=== PATIENT | female | born 1985 | race Caucasian/White ===

== ENCOUNTER 2016-11-02 16:00 | Emergency (ER) | payer BC ==
[~2016-11-02] VITALS: Ht 162.6 cm; Wt 80.5 kg
[~2016-11-02 16:00] MED LIST: ACET500C5 PO; NITR-58 PO
[2016-11-02 16:06] VITALS: Ht 162.6 cm; Wt 80.5 kg
[2016-11-02] MEDS ORDERED: ONDANSETRON (ODT) 4 MG TAB ODT STA (17:46)
[2016-11-02] MEDS ORDERED: ACETAMINOPHEN 325 MG TAB PO STA (17:46)
[2016-11-02 18:15] LABS: ADD UMIC YES; URINE BILIRUBIN (Dip) NEGATIVE (NEGATIVE); URINE BLOOD (Dip) TRACE (NEGATIVE); URINE COLOR LT. YELLOW (YELLOW); URINE GLUCOSE (Dip) NEGATIVE (NEGATIVE); URINE KETONES (Dip) TRACE (NEGATIVE); URINE LEUKOCYTE ESTERASE (Dip) NEGATIVE (NEGATIVE); URINE NITRITE (Dip) NEGATIVE (NEGATIVE); URINE TOTAL PROTEIN (Dip) NEGATIVE (NEGATIVE); URINE UROBILINOGEN (Dip) 0.2 E.U./dL (0.1-1.0)
[2016-11-02 18:25] LABS: BACTERIA,URINE MODERATE; MUCUS,URINE MANY; SQUAMOUS EPITHELIAL CELL,UR MODERATE; URINE RBCS 0-2 /HPF (0)
--- NOTE | 2016-11-02 18:49 | RADRPT ---
PROCEDURE: US OB. CLINICAL INDICATION: Ass positive test. Vaginal bleeding. TECHNIQUE: Multiple sonographic images of the uterus were obtained. The images were revi ewed on a PACS workstation. COMPARISON: No prior studies are available for comparison. FINDINGS: There is a single live intrauterine gestation. heart rate is 132 beats per minute. Measurements were made in order to determine age. The results are as follows: BPD = 2.77 cm. HC = 11.37 cm. AC = 7.96 cm. FL = 1.56 cm. Estimated weight is 102 +/- 15 grams. LMP growth percentile is 15 %. Menstrual age by ultrasound dates is 14 weeks 6 days. The estimated date of delivery is 04/27/2017. Maximum vertical pocket of amniotic fluid is 3.5 cm Position is variable and placenta is anterior. There is no evidence for an abruption or placenta pre via. IMPRESSION: 1. Single live intrauterine gestation of 14 weeks 6 days menstrual age by ultrasound dates. 2. The estimated date of delivery is 04/27/2017. RPTAT: QQ .Himanshu Santos MD, MD Date Time Electronically viewed and signed by .Himanshu Santos MD, on 11/02/2016 18:49 .R/
[2016-11-02 19:06] LABS: ADD SCAN DIFF NO
[2016-11-02 19:13] LABS: BASOPHILS % 0.3 % (0.0-2.0); EOSINOPHILS # 0.1 10^3/ul (0.0-0.5); EOSINOPHILS % 0.8 % (0.0-7.0); HEMATOCRIT 36.3 % (37.0-47.0); HEMOGLOBIN 11.8 g/dl (12.0-16.0); LYMPHOCYTES # 2.4 10^3/ul (0.8-2.9); LYMPHOCYTES % 25.1 % (15.0-51.0); MEAN CORPUSCULAR HEMOGLOBIN 28.6 pg (29.0-33.0); MEAN CORPUSCULAR HGB CONC 32.5 g/dl (32.0-37.0); MEAN CORPUSCULAR VOLUME 87.9 fl (82.0-101.0); MEAN PLATELET VOLUME 10.7 fl (7.4-10.4); MONOCYTE # 0.6 10^3/ul (0.3-0.9); MONOCYTES % 6.6 % (0.0-11.0); NEUTROPHIL # 6.5 10^3/ul (1.6-7.5); NEUTROPHILS % 66.8 % (39.0-77.0); PLATELET COUNT 253 10^3/UL (140-415); RED BLOOD COUNT 4.13 10^6/ul (4.20-5.40); RED CELL DISTRIBUTION WIDTH 12.8 % (11.5-14.5); WHITE BLOOD COUNT 9.7 10^3/ul (4.8-10.8)
[2016-11-02] MEDS ORDERED: ONDA4TAB8 PO (21:23)
[2016-11-02] MEDS ORDERED: ACET325T33 PO (21:23)
[2016-11-02 21:45] VITALS: BP 132/77; PULSE 65; RESP 16
--- NOTE | 2016-11-02 23:22 | ERD ---
ER Documentation Chief Complaint Date/Time DATE: 11/02/16 TIME: 23:10 Chief Complaint MID ABDOMINAL PAIN,12 WEEKS ,NAUSEA HPI This is a 30-year-old female on her 12th week of gestation complaining of abdominal pain, nausea and vaginal discharge since yesterday. Patient states that when she wiped her perineum yesterday, she noticed a bright red bloody discharge on the toilet paper. Today it was normal amount of brownish discharge. Abdominal pain is localized on the periumbilical area. She denies recent history of fever, dysuria, shortness of breath, chest pain, dizziness, peripheral edema or diarrhea. Patient is . Patient takes vitamins. Denies smoking or alcohol use ROS All systems reviewed and are negative except as per history of present illness. Medications Home Meds Active Scripts Ondansetron Hcl* (Zofran*) 4 Mg Tablet, 4 MG PO Q8H Y for NAUSEA AND/OR VOMITING , #30 TAB Prov:MECHELLE WAYNE 11/02/16 Acetaminophen* (Tylenol*) 325 Mg Tablet, 2 TAB PO Q6 Y for PAIN AND OR ELEVATED TEMP, #20 TAB Prov:MECHELLE WAYNE 11/02/16 Acetaminophen* (Tylophen*) 500 Mg Capsule, 1 CAP PO Q6H Y for PAIN AND OR ELEVATED TEMP, #20 CAP Prov:FRENCH GUNDERSON PA-C 06/05/16 Nitrofurantoin Monohyd Macrocr* (Macrobid*) 100 Mg Capsr, 100 MG PO BID for 5 Days, CAP Prov:FRENCH GUNDERSON PA-C 06/05/16 Reported Medications [None] No Conflict Check 12/10/09 Allergies Allergies: Coded Allergies: No Known Drug Allergies (Verified Allergy, Mild, 11/02/16) PMhx/Soc History of Surgery: Yes (C SECTION X 2) Anesthesia Reaction: No Hx Neurological Disorder: No Hx Respiratory Disorders: No Hx Cardiac Disorders: No Hx Psychiatric Problems: No Hx Miscellaneous Medical Probl: No Hx Alcohol Use: No Hx Substance Use: No Hx Tobacco Use: No Smoking Status: Never smoker Physical Exam Vitals Vital Signs Date Time Temp Pulse Resp B/P Pulse Ox O2 Delivery O2 Flow Rate FiO2 11/02/16 21:45 65 16 132/77 100 Room Air 3/23/17 16:06 98.0 86 18 123/93 98 Physical Exam Physical Exam CONST: Well-developed, well-nourished, in no acute distress. Nontoxic in appearance. HEENT: Atraumatic. Normal conjunctiva. EOM intact. TM intact. External ear is normal. Clear oropharnyx without erythema. No uvular deviation. Moist mucous membranes. Supple neck. No meningismus. No submandibular induration. RESP: Clear to auscultation bilaterally. No wheezing. CARDIO: Regular rate and rhythm, no murmurs. ABD: Periumbilical tenderness. Abdomen soft, non distended. Normal bowel sounds. No McBurney's point tenderness. No guarding or rigidity. No peritoneal signs. SKIN: No petechiae or rashes. BACK: No midline or flank tenderness. EXT: No cyanosis or edema. Distal pulses equal and bilateral. NEURO: Awake and alert, appropriate for age. Result Diagram: 11/02/16 1815 Results 24 hrs Laboratory Tests Test 11/02/16 18:06 11/02/16 18:15 Urine Color LT. YELLOW Urine Clarity SLIGHTLY CLOUDY Urine pH 6.0 Urine Specific [place] >=1.030 Urine Ketones TRACE Urine Nitrite NEGATIVE Urine Bilirubin NEGATIVE Urine Urobilinogen 0.2 E.U./dL Urine Leukocyte Esterase NEGATIVE Urine Microscopic RBC 0-2/HPF Urine Microscopic WBC NONE SEEN/HPF Urine Squamous Epithelial Cells MODERATE Urine Bacteria MODERATE Urine Mucus MANY Urine Hemoglobin TRACE Urine Glucose NEGATIVE% Urine Total Protein NEGATIVE White Blood Count 9.710^3/ul Red Blood Count 4.1310^6/ul Hemoglobin 11.8g/dl Hematocrit 36.3% Mean Corpuscular Volume 87.9fl Mean Corpuscular Hemoglobin 28.6pg Mean Corpuscular Hemoglobin Concent 32.5g/dl Red Cell Distribution Width 12.8% Platelet Count 33106^3/UL Mean Platelet Volume 10.7fl Neutrophils % 66.8% Lymphocytes % 25.1% Monocytes % 6.6% Eosinophils % 0.8% Basophils % 0.3% Nucleated Red Blood Cells % 0.0/100WBC Neutrophils # 6.510^3/ul Lymphocytes # 2.410^3/ul Monocytes # 0.610^3/ul Eosinophils # 0.110^3/ul Basophils # 0.010^3/ul Nucleated Red Blood Cells # 0.010^3/ul Beta HCG, Quantitative 23022.0mIU/ml Current Medications Medications (Trade) Dose Ordered Sig/Briana Route PRN Reason Start Time Stop Time Status Last Admin Dose Admin Acetaminophen (Tylenol Tab) 650 mg ONCE STAT PO 11/02/16 17:46 11/02/16 17:53 DC 11/02/16 18:04 Ondansetron HCl (Zofran Odt) 4 mg ONCE STAT ODT 11/02/16 17:46 11/02/16 17:53 DC 11/02/16 18:04 PROCEDURE: US OB. CLINICAL INDICATION: Ass positive test. Vaginal bleeding. TECHNIQUE: Multiple sonographic images of the uterus were obtained. The images were reviewed on a PACS workstation. COMPARISON: No prior studies are available for comparison. FINDINGS: There is a single live intrauterine gestation. heart rate is 132 beats per minute. Measurements were made in order to determine age. The results are as follows: BPD = 2.77 cm. HC = 11.37 cm. AC = 7.96 cm. FL = 1.56 cm. Estimated weight is 102 +/- 15 grams. LMP growth percentile is 15 %. Menstrual age by ultrasound dates is 14 weeks 6 days. The estimated date of delivery is 04/27/2017. Maximum vertical pocket of amniotic fluid is 3.5 cm Position is variable and placenta is anterior. There is no evidence for an abruption or placenta previa. IMPRESSION: 1. Single live intrauterine gestation of 14 weeks 6 days menstrual age by ultrasound dates. 2. The estimated date of delivery is 04/27/2017. RPTAT: QQ .Himanshu Santos MD, MD Date Time Electronically viewed and signed by .Himanshu Santos MD, MD on 11/02/2016 18:49 Procedures/MDM EMERGENCY DEPARTMENT COURSE/MEDICAL DECISION MAKING This is a 30-year-old Fe who comes to the emergency room secondary to complaints of abdominal pain, nausea and vaginal discharge since yesterday. The patient was given Tylenol and Zofran in the department. On re-evaluation, the patient's symptoms improved. Lab results reviewed and showed no [place] [address] Ultrasound OB was done and was interpreted by a radiologist. Results shows single live intrauterine gestation of 14 weeks 6 days menstrual age by ultrasound dates. There is no evidence of abruptio placenta or placenta previa My primary diagnosis is abdominal pain. Secondary diagnosis is vaginal bleeding and nausea Differential diagnoses considered but not limited to acute appendicitis, diverticulitis, pancreatitis, cholecystitis, gastritis, pyelonephritis, UTI, constipation, inflammatory bowel disease, ectopic , ovarian torsion.. Pt is hemodynamically stable upon reassessment. The patient was discharged for outpatient management with a prescription for Tylenol and Zofran. [employer] referral list was given. The patient was advised to followup with a ehs engineer and her PMD in 1-2 days. Patient was also instructed to return to the Emergency Department if there are any new or worsening symptoms. The patient understood and agreed with the diagnosis, treatment and plan. Patient is stable for discharge at this time. Departure Diagnosis: Primary Impression: Abdominal pain Abdominal location: periumbilical Qualified Code: R10.33 - Periumbilical abdominal pain Additional Impressions: Vaginal bleeding before 22 weeks gestation Nausea Condition: Stable Patient Instructions: Vaginal Bleed in , Nausea, Abdominal Pain, Early Referrals: [facility] YOU HAVE RECEIVED A MEDICAL SCREENING EXAM AND THE RESULTS INDICATE THAT YOU DO NOT HAVE A CONDITION THAT REQUIRES URGENT TREATMENT IN THE EMERGENCY DEPARTMENT. FURTHER EVALUATION AND TREATMENT OF YOUR CONDITION CAN WAIT UNTIL YOU ARE SEEN IN YOUR DOCTORS OFFICE WITHIN THE NEXT 1-2 DAYS. IT IS YOUR RESPONSIBILITY TO MAKE AN APPOINTMENT FOR FOLOW-UP CARE. IF YOU HAVE A PRIMARY DOCTOR --you should call your primary doctor and schedule an appointment IF YOU DO NOT HAVE A PRIMARY DOCTOR YOU CAN CALL OUR PHYSICIAN REFERRAL HOTLINE AT IF YOU CAN NOT AFFORD TO SEE A PHYSICIAN YOU CAN CHOSE FROM THE FOLLOWING [facility] [address] [facility] [address] [facility] [address] [facility] [address] [facility] [address] [facility]. [facility]. [address] [facility]. [facility] YOU HAVE RECEIVED A MEDICAL SCREENING EXAM AND THE RESULTS INDICATE THAT YOU DO NOT HAVE A CONDITION THAT REQUIRES URGENT TREATMENT IN THE EMERGENCY DEPARTMENT. FURTHER EVALUATION AND TREATMENT OF YOUR CONDITION CAN WAIT UNTIL YOU ARE SEEN IN YOUR DOCTORS OFFICE WITHIN THE NEXT 1-2 DAYS. IT IS YOUR RESPONSIBILITY TO MAKE AN APPOINTMENT FOR FOLOW-UP CARE. IF YOU HAVE A PRIMARY DOCTOR --you should call your primary doctor and schedule and appointment IF YOU DO NOT HAVE A PRIMARY DOCTOR YOU CAN CALL OUR PHYSICIAN REFERRAL HOTLINE AT . IF YOU CAN NOT AFFORD TO SEE A PHYSICIAN YOU CAN CHOSE FROM THE FOLLOWING [facility] INSTITUTIONS: [facility] [address] [place] [address] [facility] [address] [place] [address] [facility] [address] [place] [address] [employer] [place] [id number] [facility] [address] [place] [address] OFFICE FAX , [facility] [address] [place], [place] [id number] [facility] [facility] [address] [place] [address] [address]IE BOW[address] [facility], [address], [facility] [address] [address] [address] [place] [address] [facility] [place] [address] [place] [address] [address] [facility] [address] [address], [facility] [address] [address], [place] [address] [address], [address] [address] [place] [address] Additional Instructions: Seguimiento con latif mdico de atencin primaria en 1-2 san. Volver al Departamento de la emergencia inmediatamente si tiene alguno nuevo o empeoramiento de los sntomas, incontrolada fiebre u otros sntomas inexplicables. Seltzer todos los medicamentos kerwin lo indique. MECHELLE WAYNE Nov 02, 2016 23:21
== END 2016-11-02 21:46 | disposition home or self-care (01) ==
LOC: FTE 16:00
DX: O26.892 Other specified pregnancy related conditions, second trimester (principal); O20.9 Hemorrhage in early pregnancy, unspecified; R10.33 Periumbilical pain; R11.0 Nausea; Z3A.14 14 weeks gestation of pregnancy
CPT/HCPCS: 76801; 81001; 84702; 85025; 86900; 86901; 87086; Z7610; 36415; 81003

== ENCOUNTER 2017-01-25 21:22 | Emergency (ER) | payer BC, OTHER ==
[~2017-01-25] VITALS: Ht 162.6 cm; Wt 81.5 kg
[~2017-01-25 21:22] MED LIST changes: +ACET325T33 PO; +ONDA4TAB8 PO
[2017-01-25 21:28] VITALS: Ht 162.6 cm; Wt 81.5 kg
--- NOTE | 2017-01-25 23:10 | ERA ---
ER Documentation Chief Complaint Date/Time DATE: 01/25/17 TIME: 23:09 Chief Complaint dizziness,nausea HPI The patient is a 31-year-old female, presenting to the ER because he felt dizzy and nausea but no vomiting. She had these symptoms right after she finished Bible study. She complained of generalized facial and whole body numbness intermittently since 9 PM. She denies headache, neck pain, chest pain, dyspnea , abdominal pain, vomiting, dysuria, diarrhea, constipation. He does not smoke nor drink, 3 para 2, denies smoking or drinking not using any illicit drug Past medical history: Anxiety Past surgical history: ROS All systems reviewed and are negative except as per history of present illness. Medications Home Meds Reported Medications Multivit/Min/Fol Ac/Iron/Pren* ( S*) 1 Tab Tab, 1 TAB PO DAILY, TAB 01/25/17 Discontinued Reported Medications [None] No Conflict Check 12/10/09 Discontinued Scripts Ondansetron Hcl* (Zofran*) 4 Mg Tablet, 4 MG PO Q8H Y for NAUSEA AND/OR VOMITING , #30 TAB Prov:MECHELLE WAYNE 11/02/16 Acetaminophen* (Tylenol*) 325 Mg Tablet, 2 TAB PO Q6 Y for PAIN AND OR ELEVATED TEMP, #20 TAB Prov:MECHELLE WAYNE 11/02/16 Acetaminophen* (Tylophen*) 500 Mg Capsule, 1 CAP PO Q6H Y for PAIN AND OR ELEVATED TEMP, #20 CAP Prov:FRENCH GUNDERSON PA-C 06/05/16 Nitrofurantoin Monohyd Macrocr* (Macrobid*) 100 Mg Capsr, 100 MG PO BID for 5 Days, CAP Prov:FRENCH GUNDERSON PA-C 06/05/16 Allergies Allergies: Coded Allergies: No Known Drug Allergies (Unverified Allergy, Unknown, 01/25/17) PMhx/Soc History of Surgery: Yes (C SECTION X 2) Anesthesia Reaction: No Hx Neurological Disorder: No Hx Respiratory Disorders: No Hx Cardiac Disorders: No Hx Psychiatric Problems: No Hx Miscellaneous Medical Probl: No Hx Alcohol Use: No Hx Substance Use: No Hx Tobacco Use: No Physical Exam Vitals Vital Signs Date Time Temp Pulse Resp B/P Pulse Ox O2 Delivery O2 Flow Rate FiO2 01/26/17 02:22 71 18 115/64 97 Room Air 01/25/17 23:45 98.0 72 18 139/92 98 Room Air 01/25/17 21:28 98.6 76 18 137/85 99 Physical Exam Const: No acute distress. Very anxious Head: Atraumatic. Eyes: Normal Conjunctiva. ENT: Normal External Ears, Nose and Mouth. Neck: Full range of motion. No meningismus. Resp: Clear to auscultation bilaterally. Cardio: Regular rate and rhythm. Abd: Soft, non distended, normal bowel sounds, non tender. Skin: No petechiae or rashes. Back: No midline or flank tenderness. Ext: No cyanosis, or edema. Neur: Awake and alert. No focal deficit Psych: Normal Mood and Affect. Result Diagram: 01/25/17 2337 01/25/17 2337 Results 24 hrs Laboratory Tests Test 01/25/17 23:14 01/25/17 23:37 01/26/17 00:51 Bedside Glucose 95mg/dL White Blood Count 10.010^3/ul Red Blood Count 3.6110^6/ul Hemoglobin 10.9g/dl Hematocrit 32.3% Mean Corpuscular Volume 89.5fl Mean Corpuscular Hemoglobin 30.2pg Mean Corpuscular Hemoglobin Concent 33.7g/dl Red Cell Distribution Width 12.6% Platelet Count 01799^3/UL Mean Platelet Volume 10.8fl Neutrophils % 66.6% Lymphocytes % 25.0% Monocytes % 6.9% Eosinophils % 1.0% Basophils % 0.2% Nucleated Red Blood Cells % 0.0/100WBC Neutrophils # 6.710^3/ul Lymphocytes # 2.510^3/ul Monocytes # 0.710^3/ul Eosinophils # 0.110^3/ul Basophils # 0.010^3/ul Nucleated Red Blood Cells # 0.010^3/ul Prothrombin Time 12.0Sec Prothrombin Time Ratio 0.9 INR International Normalized Ratio 0.89 Activated Partial Thromboplast Time 28.6Sec Sodium Level 143mmol/L Potassium Level 3.5mmol/L Chloride Level 109mmol/L Carbon Dioxide Level 23mmol/L Anion Gap 15 Blood Urea Nitrogen 9mg/dl Creatinine 0.46mg/dl Glucose Level 82mg/dl Calcium Level 9.5mg/dl Total Bilirubin 0.1mg/dl Direct Bilirubin 0.00mg/dl Indirect Bilirubin 0.1mg/dl Aspartate Amino Transf (AST/SGOT) 23IU/L Alanine Aminotransferase (ALT/SGPT) 18IU/L Alkaline Phosphatase 78IU/L Total Protein 7.9g/dl Albumin 4.3g/dl Globulin 3.60g/dl Albumin/Globulin Ratio 1.19 Lipase 42U/L Thyroid Stimulating Hormone (TSH) 1.440MIU/L Ethyl Alcohol Level < 10.0mg/dl Bedside Urine pH (LAB) 6.0 Bedside Urine Protein (LAB) 1+ Bedside Urine Glucose (UA) Negative Bedside Urine Ketones (LAB) 2+ Bedside Urine Blood Trace-intact Bedside Urine Nitrite (LAB) Negative Bedside Urine Leukocyte Esterase (L Negative Procedures/MDM MEDICAL MAKING DECISION: The patient is a 31-year-old female, presenting with acute anxiety. Remains well in the emergency department and her symptoms resolved by themselves The differential diagnoses considered include but are not limited to panic attack, anxiety attack, depression, stress, psychiatric illness EKG: Read by emergency physician Rate/Rhythm: Normal Sinus Rhythm 70 beats/min QRS, ST, T-waves: No ST elevation, no T inversion Impression: Normal EKG Departure Diagnosis: Primary Impression: Anxiety attack Additional Impression: Anemia Condition: Good Comments I discussed the findings with the patient. I advised the patient to follow-up with the primary physician in about 1-2 days, sooner if needed and return if any concern. The patient's blood pressure was elevated (>120/80) but appears stable without evidence of hypertension emergency or urgency. The patient was counseled about the risks of hypertension and urged to pursue outpatient monitoring and therapy within a week with their primary care physician. IDA PAVON MD Jan 25, 2017 23:10
[2017-01-25] MEDS ORDERED: PRENAT PO (23:30)
[2017-01-25 23:45] VITALS: TEMP 98
[2017-01-25 23:53] LABS: ADD SCAN DIFF NO
[2017-01-25 23:59] LABS: BASOPHILS % 0.2 % (0.0-2.0); EOSINOPHILS # 0.1 10^3/ul (0.0-0.5); HEMATOCRIT 32.3 % (37.0-47.0); HEMOGLOBIN 10.9 g/dl (12.0-16.0); LYMPHOCYTES # 2.5 10^3/ul (0.8-2.9); MEAN CORPUSCULAR HEMOGLOBIN 30.2 pg (29.0-33.0); MEAN CORPUSCULAR HGB CONC 33.7 g/dl (32.0-37.0); MEAN CORPUSCULAR VOLUME 89.5 fl (82.0-101.0); MEAN PLATELET VOLUME 10.8 fl (7.4-10.4); MONOCYTE # 0.7 10^3/ul (0.3-0.9); MONOCYTES % 6.9 % (0.0-11.0); NEUTROPHIL # 6.7 10^3/ul (1.6-7.5); NEUTROPHILS % 66.6 % (39.0-77.0); PLATELET COUNT 262 10^3/UL (140-415); RED BLOOD COUNT 3.61 10^6/ul (4.20-5.40); RED CELL DISTRIBUTION WIDTH 12.6 % (11.5-14.5)
[2017-01-26 00:27] LABS: INR 0.89; PT RATIO 0.9
[2017-01-26 00:28] LABS: PARTIAL THROMBOPLASTIN TIME 28.6 Sec (25.0-35.0)
[2017-01-26 00:29] LABS: ALANINE AMINOTRANSFERASE 18 IU/L (13-69); ALBUMIN 4.3 g/dl (3.3-4.9); ALBUMIN/GLOBULIN RATIO 1.19; ALKALINE PHOSPHATASE 78 IU/L (42-121); ANION GAP 15 (8-16); ASPARTATE AMINO TRANSFERASE 23 IU/L (15-46); BILIRUBIN,INDIRECT 0.1 mg/dl (0-1.1); BILIRUBIN,TOTAL 0.1 mg/dl (0.2-1.3); BLOOD UREA NITROGEN 9 mg/dl (7-20); CALCIUM 9.5 mg/dl (8.4-10.2); CARBON DIOXIDE 23 mmol/L (21-31); CHLORIDE 109 mmol/L (97-110); CREATININE 0.46 mg/dl (0.44-1.00); GLUCOSE 82 mg/dl (70-220); POTASSIUM 3.5 mmol/L (3.5-5.1); SODIUM 143 mmol/L (135-144)
[2017-01-26 00:49] LABS: URINE BLOOD (Dip) POC Trace-intact (NEGATIVE)
[2017-01-26 01:25] LABS: ETHANOL < 10.0 mg/dl; TOTAL PROTEIN 7.9 g/dl (6.1-8.1)
[2017-01-26 02:22] VITALS: BP 115/64; PULSE 71; RESP 18
== END 2017-01-26 02:25 | disposition home or self-care (01) ==
LOC: FTE 21:22 → E/R 01-26 02:25
DX: F41.9 Anxiety disorder, unspecified (principal); D64.9 Anemia, unspecified; R07.9 Chest pain, unspecified
CPT/HCPCS: 36415; 80053; 80306; 81003; 82962; 83690; 84443; 85025; 85610; 85730; 93005; Z7502

== ENCOUNTER 2017-03-16 08:50 | Emergency (ER) | payer OTHER ==
[~2017-03-16] VITALS: Ht 162.6 cm; Wt 82.0 kg
[~2017-03-16 08:50] MED LIST changes: -ACET325T33 PO; -ACET500C5 PO; -NITR-58 PO; -ONDA4TAB8 PO; +PRENAT PO
[2017-03-16 08:55] VITALS: Ht 162.6 cm; Wt 82.0 kg
[2017-03-16] MEDS ORDERED: ACETAMINOPHEN 500 MG TAB PO STA (09:28)
[2017-03-16] MEDS ORDERED: LIDOCAINE 1% (MDV) 20 ML INJ SC ONE (09:30)
[2017-03-16] MEDS ORDERED: CLIN-73 PO (09:55)
[2017-03-16] MEDS ORDERED: ACET500C5 PO (09:56)
--- NOTE | 2017-03-16 10:02 | ERD ---
ER Documentation Chief Complaint Date/Time DATE: 03/16/17 TIME: 09:56 Chief Complaint LEFT UPPER THIGH ABCESS WITH PAIN HPI Patient is a 31-year-old female, , approximately 33 weeks , who presents to the emergency department for concerns of an abscess in her left groin region. She states that initially she had a small red pimple in the affected area. Patient states that the redness and swelling has been increasing. Patient does report shaving the affected area. Patient denies any active discharge or bleeding. Patient denies any fevers or chills. Patient denies any nausea, vomiting, abdominal pain, pelvic cramping, vaginal bleeding, excessive vaginal discharge, fluid loss or active contractions. 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 Patient reports normal . No sick contacts. No recent travel ROS All systems reviewed and are negative except as per history of present illness. Medications Home Meds Active Scripts Acetaminophen* (Tylophen*) 500 Mg Capsule, 1 CAP PO Q6H Y for PAIN AND OR ELEVATED TEMP, #20 CAP Prov:ALLI MILLER PA-C 03/16/17 Clindamycin Hcl* (Clindamycin Hcl*) 300 Mg Capsule, 300 MG PO TID for 10 Days, CAP Prov:ALLI MILLER PA-C 03/16/17 Reported Medications Multivit/Min/Fol Ac/Iron/Pren* ( S*) 1 Tab Tab, 1 TAB PO DAILY, TAB 01/25/17 Allergies Allergies: Coded Allergies: No Known Drug Allergies (Unverified Allergy, Unknown, 01/25/17) PMhx/Soc History of Surgery: Yes (C SECTION X 2) Anesthesia Reaction: No Hx Neurological Disorder: No Hx Respiratory Disorders: No Hx Cardiac Disorders: No Hx Psychiatric Problems: No Hx Miscellaneous Medical Probl: No Hx Alcohol Use: No Hx Substance Use: No Hx Tobacco Use: No Smoking Status: Never smoker Physical Exam Vitals Vital Signs Date Time Temp Pulse Resp B/P Pulse Ox O2 Delivery O2 Flow Rate FiO2 03/16/17 08:55 98.6 75 18 124/71 99 Physical Exam GENERAL: Well-developed, well-nourished female. Appears in no acute distress. HEAD: Normocephalic, atraumatic. EYES: Pupils are equally reactive bilaterally. EOMs grossly intact. No conjunctival erythema. ENT: Moist mucous membranes. No uvula deviation. No kissing tonsils. NECK: Supple. No meningismus. Normal range of motion of the neck. LUNG: Clear to auscultation bilaterally. No rhonchi, wheezing, rales or coarse breath sounds. HEART: Regular rate and rhythm. No murmurs, rubs or gallops. ABDOMEN: Gravid abdomen. No rebound tenderness, no guarding. (-) McBurney's point tenderness. No CVA tenderness. EXTREMITIES: Equal pulses bilaterally. No peripheral clubbing, cyanosis or edema. No unilateral leg swelling. NEUROLOGIC: Alert and oriented. Moving all four extremities without any difficulty. Normal speech. Steady gait. SKIN: Normal color. Warm and dry. 2 cm circular abscess noted in the left groin. Ingrown hair noted. Erythematous and swollen. Mildly warm to touch. + Induration and fluctuance noted. Results 24 hrs Current Medications Medications (Trade) Dose Ordered Sig/Briana Route PRN Reason Start Time Stop Time Status Last Admin Dose Admin Acetaminophen (Tylenol Tab) 1,000 mg ONCE STAT PO 03/16/17 09:28 03/16/17 09:30 DC 03/16/17 09:40 Lidocaine (Xylocaine 1% (Mdv) 20 ml) 20 ml ONCE ONCE SC 03/16/17 09:30 03/16/17 09:31 DC Procedures/MDM ED COURSE: The patient was stable throughout ED course. I kept the patient and/or family informed of laboratory and diagnostic imaging results throughout the ED course. PROCEDURES: INCISION AND DRAINAGE: The patient was verbally consented prior to procedure. Patient was explained the risks, benefits and alternatives to this procedure. Location: Left groin Abscess size: 2 cm Anesthesia: local 1% lidocaine, 5 cc Preparation: The area was prepped in a sterile fashion using betadine x3 cleanses. A sterile field was prepared. Technique: A sterile 11 blade scalpel was used to make a 1 cm linear incision into the abscess. Procedure: A midline abscess incision was made using a sterile scalpel in a linear fashion. Purulent material was expressed with direct pressure. Blunt probing was used to break up loculations. Bleeding was minimal. Packing: none The patient tolerated the procedure well with no complications. The wound was dressed in sterile gauze. The patient was neurovascularly intact post- procedure. Post-procedural wound care was discussed with the patient. MEDICATIONS GIVEN: Tylenol Patient tolerated medication well with no adverse reactions. MEDICAL DECISION MAKING: This is a 31-year-old female who presents with an abscess to her left groin region 4 days. Patient is approximately 33 weeks . Patient does report receiving OB care throughout her . Patient denies any pelvic cramping, abdominal pain, nausea, vomiting, vaginal bleeding, excessive vaginal discharge or contractions at this time. Vital signs were reviewed. Patient was afebrile. An incision and drainage was performed. Patient tolerated procedure well. No complications. Patient will be discharged home with a prescription for clindamycin which is safe during . At this time, patient's presentation is most consistent with abscess due to ingrown hair. Low suspicion for deep space infection, cellulitis, infected insect bite, spontaneous rupture of membranes, active labor. She was given labor return precautions. Patient was also given instructions to return to the emergency department for a wound recheck in 2 days. PRESCRIPTIONS: Clindamycin, Tylenol DISCHARGE: At this time, the patient is stable for discharge and outpatient management. Post-procedural wound care was discussed with the patient. The patient has been advised to return to the ER in 2 days for a wound check. I have instructed the patient to promptly return to the ER for any new or worsening symptoms including increasing pain, fever, warmth, redness or swelling. The patient and/ or family expressed understanding of and agreement with this plan. All questions were answered. Home care instructions were provided. Disclaimer: Inadvertent spelling and grammatical errors are likely due to EHR/ dictation software use and do not reflect on the overall quality of patient care. Also, please note that the electronic time recorded on this note does not necessarily reflect the actual time of the patient encounter. Departure Diagnosis: Primary Impression: Abscess Condition: Stable Patient Instructions: Abscess, Incision And Drainage Referrals: COMMUNITY CLINICS YOU HAVE RECEIVED A MEDICAL SCREENING EXAM AND THE RESULTS INDICATE THAT YOU DO NOT HAVE A CONDITION THAT REQUIRES URGENT TREATMENT IN THE EMERGENCY DEPARTMENT. FURTHER EVALUATION AND TREATMENT OF YOUR CONDITION CAN WAIT UNTIL YOU ARE SEEN IN YOUR DOCTORS OFFICE WITHIN THE NEXT 1-2 DAYS. IT IS YOUR RESPONSIBILITY TO MAKE AN APPOINTMENT FOR FOLOW-UP CARE. IF YOU HAVE A PRIMARY DOCTOR --you should call your primary doctor and schedule an appointment IF YOU DO NOT HAVE A PRIMARY DOCTOR YOU CAN CALL OUR PHYSICIAN REFERRAL HOTLINE AT IF YOU CAN NOT AFFORD TO SEE A PHYSICIAN YOU CAN CHOSE FROM THE FOLLOWING FORMERLY [facility], [facility] [address] [facility] [address] [facility]. [facility] [address] [facility] [phone] [address] [facility]. [facility] [phone] [address] [facility]. [facility] [address] [facility]. [facility] YOU HAVE RECEIVED A MEDICAL SCREENING EXAM AND THE RESULTS INDICATE THAT YOU DO NOT HAVE A CONDITION THAT REQUIRES URGENT TREATMENT IN THE EMERGENCY DEPARTMENT. FURTHER EVALUATION AND TREATMENT OF YOUR CONDITION CAN WAIT UNTIL YOU ARE SEEN IN YOUR DOCTORS OFFICE WITHIN THE NEXT 1-2 DAYS. IT IS YOUR RESPONSIBILITY TO MAKE AN APPOINTMENT FOR FOLOW- CARE. IF YOU HAVE A PRIMARY DOCTOR --you should call your primary doctor and schedule and appointment IF YOU DO NOT HAVE A PRIMARY DOCTOR YOU CAN CALL OUR PHYSICIAN REFERRAL HOTLINE AT . IF YOU CAN NOT AFFORD TO SEE A PHYSICIAN YOU CAN CHOSE FROM THE FOLLOWING [facility] INSTITUTIONS: [facility] [address] [place] [address] [place] [place] [address] [place] [address] [facility] [address] [place] [address] [employer]PER[employer] [place] [address] [facility] [address] [place], [place] [phone] OFFICE FAX , JEOVANNY [address] [place], [place] [phone] [address] PURDY, [place] [address] [place], [place] [phone] RAYA, [facility] [address] [facility], [address], [facility] [address] [address] [address] [place], [place] [phone] [facility] [address] [place], [place] [address] [address] [facility] [address] - JOVANY [address] [facility] [phone] MONTES, KYLIE [address] [facility], [facility] [address] [address] [facility] [address] [place], [place] [phone] Additional Instructions: Return in 2 days for wound recheck. Return sooner for any new or worsening symptoms including but not limited to severe pain, redness, swelling, fever or chills. Come to the hospital immediately for any signs or concerns of active labor. ALLI MILLER PA-C Mar 16, 2017 10:02
== END 2017-03-16 11:17 | disposition home or self-care (01) ==
LOC: FTE 08:50
DX: L02.214 Cutaneous abscess of groin (principal)
CPT/HCPCS: 10060; Z7610

== ENCOUNTER 2017-03-23 22:12 | Outpatient (CLI) | payer OTHER ==
[~2017-03-23] VITALS: Ht 162.6 cm; Wt 84.0 kg
[~2017-03-23 22:12] MED LIST changes: +ACET500C5 PO; +CLIN-73 PO
[2017-03-23 22:58] LABS: ADD UMIC YES; UR ASCORBIC ACID NEGATIVE (NEGATIVE); UR BILIRUBIN (Dip) NEGATIVE (NEGATIVE); UR BLOOD (Dip) 1+ mg/dL (NEGATIVE); UR CLARITY CLOUDY (CLEAR); UR COLOR YELLOW (YELLOW); UR GLUCOSE (Dip) NEGATIVE (NEGATIVE); UR KETONES (Dip) NEGATIVE (NEGATIVE); UR LEUKOCYTE ESTERASE (Dip) 3+ Leu/ul (NEGATIVE); UR NITRITE (Dip) NEGATIVE (NEGATIVE); UR RBC 3 /HPF (0-5); UR SPECIFIC GRAVITY (Dip) 1.009 (1.003-1.030); UR SQUAMOUS EPITHELIAL CELL FEW /HPF (FEW); UR TOTAL PROTEIN (Dip) 1+ mg/dl (NEGATIVE); UR UROBILINOGEN (Dip) NEGATIVE (NEGATIVE)
[2017-03-23 23:31] VITALS: BP 123/84; PULSE 83; RESP 18; Ht 162.6 cm; Wt 84.0 kg
--- NOTE | 2017-03-24 00:24 | QN ---
Documentation Comment iup 34 weeks co of vaginal pain vss exam wnl no cva tenderness vitals wnl a/p iup 34 weeks false labor uti-macrobid ANH THOMAS MD Mar 24, 2017 00:23
== END 2017-03-24 00:24 | disposition home or self-care (01) ==
LOC: L-D 22:12 → OBT 22:12
PROVIDERS: ATTEND Obstetrics & Gynecology
DX: O23.43 Unspecified infection of urinary tract in pregnancy, third trimester (principal); O47.03 False labor before 37 completed weeks of gestation, third trimester; Z3A.34 34 weeks gestation of pregnancy
CPT/HCPCS: 81001; Z7500; G0463

== ENCOUNTER 2017-04-20 00:10 | Inpatient (IN) | payer OTHER ==
[~2017-04-20] VITALS: Ht 162.6 cm; Wt 84.8 kg
[~2017-04-20 00:10] MED LIST changes: -ACET500C5 PO; -CLIN-73 PO
[2017-04-20 00:18] VITALS: Ht 162.6 cm; Wt 84.8 kg
[2017-04-20 00:19] VITALS: BP 130/87; PULSE 70; RESP 18
--- NOTE | 2017-04-20 01:06 | RADRPT ---
PROCEDURE: OB ultrasound for biophysical profile CLINICAL INDICATION: 31 years of age, female. Female. Contractions. TECHNIQUE: Multiple sonographic images of the pelvis were obtained. Transabdominal view of the gr avid uterus are available for review. The images were reviewed on a PACS workstation. COMPARISON: None available. FINDINGS: breathing movement = 2/2 tone = 2/2 motion = 2/2 Amniotic fluid = 2/2 JIM = 12.5 cm Single live intrauterine in cephalic presentation. heart rate measures 132 bpm. Anterior placenta, grade 1/2. IMPRESSION: 1. Single living fetus in cephalic presentation. 2. Biophysical profile = 8/8. 3. JIM = 12.5 cm. 4. Anterior placenta grade 1/2. RPTAT: HCTS Physician Aaliyah Date Time Electronically viewed and signed by Physician Aaliyah on 04/20/2017 01:05 /
[2017-04-20 02:43] LABS: ADD UMIC NO; UR ASCORBIC ACID NEGATIVE (NEGATIVE); UR BILIRUBIN (Dip) NEGATIVE (NEGATIVE); UR BLOOD (Dip) NEGATIVE (NEGATIVE); UR CLARITY CLEAR (CLEAR); UR COLOR STRAW (YELLOW); UR GLUCOSE (Dip) NEGATIVE (NEGATIVE); UR KETONES (Dip) NEGATIVE (NEGATIVE); UR LEUKOCYTE ESTERASE (Dip) NEGATIVE Leu/ul (NEGATIVE); UR NITRITE (Dip) NEGATIVE (NEGATIVE); UR SPECIFIC GRAVITY (Dip) 1.006 (1.003-1.030); UR TOTAL PROTEIN (Dip) NEGATIVE (NEGATIVE); UR UROBILINOGEN (Dip) NEGATIVE (NEGATIVE)
[2017-04-20 02:47] LABS: CANNABINOIDS Negative (NEGATIVE)
[2017-04-20 02:52] LABS: BARBITURATES Negative (NEGATIVE); BENZODIAZEPINES Negative (NEGATIVE); COCAINE Negative (NEGATIVE); OPIATES Negative (NEGATIVE)
--- NOTE | 2017-04-20 04:00 | PN ---
Triage Information Date/Time 04/20/17 0350 Reason for visit: Uterine contractions Weeks of Gestation 38w2d /Para Diabetes: none Hypertention: none Objective Vital Signs Date Time Temp Pulse Resp B/P Pulse Ox O2 Delivery O2 Flow Rate FiO2 04/20/17 00:19 98.2 70 18 130/87 Room Air Heart Rate: 130's Contractions: 6-10 Minutes Apart Exam ftp/50/-2 EFM u.c 5-10 min mild pain 11/20 Results/Medications Results 24 hrs Laboratory Tests Test 04/20/17 00:20 Urine Color STRAW Urine Clarity CLEAR Urine pH 7.0 Urine Specific [place] 1.006 Urine Ketones NEGATIVE Urine Nitrite NEGATIVE Urine Bilirubin NEGATIVE Urine Urobilinogen NEGATIVE Urine Leukocyte Esterase NEGATIVE Urine Hemoglobin NEGATIVE Urine Glucose NEGATIVE Urine Total Protein NEGATIVE Urine Opiates Screen Negative Urine Barbiturates Negative Urine Amphetamines Screen Negative Urine Benzodiazepines Screen Negative Urine Cocaine Screen Negative Urine Cannabinoids Negative Imaging Results [facility] 03/20 JIM 12.5 ANEL HOLLOWAY MD Apr 20, 2017 04:00
[2017-04-20] MEDS ORDERED: METHYLERGONOVINE 0.2 MG INJ IM PRN ×3 (04:30→18:30)
[2017-04-20] MEDS ORDERED: MISOPROSTOL 200 MCG TAB PR PRN ×3 (04:30→18:30)
[2017-04-20] MEDS ORDERED: AMPICILLIN 2 GM/NS (PMX) 100 ML IV ONE (04:30)
[2017-04-20] MEDS ORDERED: OXYTOCIN 30 UNITS/LR 500 ML IV SCH ×2 (04:30→09:00)
[2017-04-20] MEDS ORDERED: CARBOPROST 250 MCG INJ IM PRN ×3 (04:30→18:30)
[2017-04-20] MEDS ORDERED: OXYTOCIN 30 UNITS/LR 500 ML IV PRN ×3 (04:30→18:30)
--- NOTE | 2017-04-20 05:28 | HP ---
Date/Time of Note Date/Time of Note DATE: 04/20/17 TIME: 05:19 OB - History Hx of Present Free Text/Dictation 31 y.o had x2 previous C/S here at triage with c/o U.C'swith ? leaking amniotic fluid. spec exam no pooling ROM plus sent pending BPP 03/20 JIM 12.5 pain 4/10 EFM u.c 5-10 min apart VE ftp/50%/-2 GBS + ampicillin started since patient is cristian admit for prep for repeat c/s sometime today Chief Complaint: U.C's Estimated Due Date: May 02, 2017 : 3 Para: 2 Spontaneous : 0 Therapeutic : 0 Care: Good Care Ultrasounds: Normal mid trimester US Obstetrical Complications: None Medical Complications: None Past Family/Social History * Past Medical, Surgical, Family and Obstetric Histories reviewed from chart. Blood Type: O+ Rubella: not immune RPR/VDRL: Negative GBS Status: Positive HBsAG: Negative OB Admission Exam Vital Signs Vital Signs Vital Signs Date Time Temp Pulse Resp B/P Pulse Ox O2 Delivery O2 Flow Rate FiO2 04/20/17 00:19 98.2 70 18 130/87 Room Air Physical Exam HEENT: WNL Heart: Rhythm Normal Lungs: Clear, Equal Abdomen: WNL Extremities: Normal Reflexes: Normal Cervical Dilatation: Fingertip Effacement: 50% Station: -2 Membranes: Intact Amniotic Fluid: Unevaluable Heart Rate: 130's Accelerations: Accelerations Present Decelerations: No Decelerations Varibility: Moderate Contractions on Admission: 6-10 Minutes Apart Intensity: Mild OB Assessment/Plan Reason for admission: section Other Assessment: IUP 38w2d with previous section X2 in early labor Plan: Section ANEL HOLLOWAY MD Apr 20, 2017 05:28
--- NOTE | 2017-04-20 07:40 | TRIAGE ---
OB Triage Datetime Report Generated by CPN: 04/20/2017 07:39 Datetime: 04/20/2017 07:00 Stage of : OB Triage Labor Evaluation Frequency: 3-7 Monitor Mode: External Duration (sec)2399: 40-80 Quality: Mild Pattern: Normal: <= 5 Contractions in 10 Minutes Resting Tone [place]: Relaxed Heart Rate FHR Baseline Rate: 120 Monitor Mode: External US Variability: Moderate 6-25 bpm Accelerations: 15X15 Decelerations: None Category: Category I Datetime: 04/20/2017 06:00 Stage of : OB Triage Labor Evaluation Frequency: OCCASS Monitor Mode: External Duration (sec)2399: 60 Quality: Mild Pattern: Normal: <= 5 Contractions in 10 Minutes Resting Tone [place]: Relaxed Datetime: 04/20/2017 05:00 Stage of : OB Triage Labor Evaluation Frequency: IRREG Monitor Mode: External Duration (sec)2399: 40-80 Quality: Mild Pattern: Normal: <= 5 Contractions in 10 Minutes Resting Tone [place]: Relaxed Heart Rate FHR Baseline Rate: 120 Monitor Mode: External US Variability: Moderate 6-25 bpm Accelerations: 15X15 Decelerations: None Category: Category I Datetime: 04/20/2017 04:00 Stage of : OB Triage Labor Evaluation Frequency: 2-8 Monitor Mode: External Duration (sec)2399: 40-80 Quality: Mild Pattern: Normal: <= 5 Contractions in 10 Minutes Resting Tone [place]: Relaxed Heart Rate FHR Baseline Rate: 130 Monitor Mode: External US Variability: Moderate 6-25 bpm Accelerations: 15X15 Decelerations: None Category: Category I Datetime: 04/20/2017 03:00 Stage of : OB Triage Labor Evaluation Frequency: 3-10 Monitor Mode: External Duration (sec)2399: 40-80 Quality: Mild Pattern: Normal: <= 5 Contractions in 10 Minutes Resting Tone [place]: Relaxed Heart Rate FHR Baseline Rate: 130 Monitor Mode: External US Variability: Moderate 6-25 bpm Accelerations: 15X15 Decelerations: Variable Category: Category II Pain Assessment Pain Scale: 4 Pain Presence: Intermittent Pain Type: Cramping Pain Location: Abdomen Pain Goal: 3 Pain Relief Measures: Comfort Measures Datetime: 04/20/2017 02:00 Stage of : OB Triage Labor Evaluation Frequency: 3-9 Monitor Mode: External Duration (sec)2399: 40-80 Quality: Mild Pattern: Normal: <= 5 Contractions in 10 Minutes Resting Tone [place]: Relaxed Heart Rate FHR Baseline Rate: 130 Monitor Mode: External US Variability: Moderate 6-25 bpm Accelerations: 15X15 Decelerations: None Category: Category I Pain Assessment Pain Scale: 4 Pain Presence: Intermittent Pain Type: Cramping Pain Location: Abdomen Pain Goal: 3 Pain Relief Measures: Comfort Measures Datetime: 04/20/2017 01:46 Pain Assessment Pain Scale: 4 Pain Presence: Intermittent Pain Type: Cramping Pain Location: Abdomen Pain Goal: 5 Pain Relief Measures: Comfort Measures Datetime: 04/20/2017 01:20 Labor Evaluation Frequency: 2-6 Monitor Mode: External Duration (sec)2399: 40-100 Quality: Mild Pattern: Normal: <= 5 Contractions in 10 Minutes Resting Tone [place]: Relaxed Heart Rate FHR Baseline Rate: 135 Monitor Mode: External US Variability: Moderate 6-25 bpm Accelerations: 15X15 Decelerations: None Category: Category I Datetime: 04/20/2017 01:00 Stage of : OB Triage Temperature Route: Oral Labor Evaluation Frequency: IRREG Monitor Mode: External Duration (sec)2399: 40-100 Quality: Mild Pattern: Normal: <= 5 Contractions in 10 Minutes Resting Tone [place]: Relaxed Heart Rate FHR Baseline Rate: 130 Monitor Mode: External US Variability: Moderate 6-25 bpm Accelerations: 15X15 Decelerations: None Category: Category I Pain Assessment Pain Scale: 4 Pain Presence: Intermittent Pain Type: Cramping Pain Location: Abdomen Pain Goal: 3 Pain Relief Measures: Comfort Measures Datetime: 04/20/2017 00:54 Monitor Mode: External Monitor Mode: External US Datetime: 04/20/2017 00:25 Vaginal Exam Dilatation (cms): 0.5 Effacement (%): 50 Station: -2 Datetime: 04/20/2017 00:22 Assessment Type: Triage Maternal Assessment Level of Consciousness: Fully Conscious DTR's/Clonus: DTRs 2+; No Clonus Headache: Denies Blurred Vision: No Respiratory Effort: Unlabored; Regular Rhythm; Equal Expansion Nausea/Vomiting: Denies RUQ Epigastric Pain: Denies Lower Extremities Edema: None Degree: None Upper Extremities Edema: None Degree: None Facial Edema: None Datetime: 04/20/2017 00:21 Time of Arrival: 04/20/2017 00:07 EGA: 38.2 Arrived By: Wheelchair Arrived From: Home Chief Complaint: UTERINE CONTRACTIONS AND POSSIBLE RUPTURE OF MEMBRANES Movement: Present Contractions: Irregular Time Contractions Began: 04/19/2017 20:30 Contractions: 9 Rupture of Membranes: Ruptured Vaginal Bleeding: None Vaginal Discharge: Present Recent Sexual Intercouse: Denies Abdominal Trauma: Not Applicable Patient Complaints: Contractions; Back Pain Time Provider Notified: 04/20/2017 00:35 Provider Notified: AMIE Initial Plan: SVE, JIM, BPP Datetime: 04/20/2017 00:17 Comments: MONITORS PLACED. AUDIBLE HEART TONES NOTED. Datetime: 03/23/2017 23:00 Vaginal Exam Dilatation (cms): 0.0 Effacement (%): 0 Station: -2 Exam By: BE Vaginal Bleeding: None Cervix, Consistency: Moderate Cervix, Position: Midposition Datetime: 03/23/2017 22:52 Time of Arrival: 03/23/2017 21:51 EGA: 34.2 Arrived By: Wheelchair Arrived From: Home Movement: Present Contractions: Denies/Absent Rupture of Membranes: Denies Vaginal Discharge: Denies Recent Sexual Intercouse: Denies Abdominal Trauma: Not Applicable Patient Complaints: Other Additional Patient Complaints: CONSTANT PELVIC PRESSURE, FREQUENT URINATION Time Provider Notified: 03/23/2017 22:37 Provider Notified: WILLIAM Initial Plan: TOM BROWN
[2017-04-20 07:46] LABS: BASOPHILS % 0.3 % (0.0-2.0); EOSINOPHILS # 0.1 10^3/ul (0.0-0.5); EOSINOPHILS % 0.9 % (0.0-7.0); HEMATOCRIT 30.4 % (37.0-47.0); HEMOGLOBIN 10.1 g/dl (12.0-16.0); LYMPHOCYTES # 2.5 10^3/ul (0.8-2.9); LYMPHOCYTES % 26.7 % (15.0-51.0); MEAN CORPUSCULAR HEMOGLOBIN 29.7 pg (29.0-33.0); MEAN CORPUSCULAR HGB CONC 33.2 g/dl (32.0-37.0); MEAN CORPUSCULAR VOLUME 89.4 fl (82.0-101.0); MONOCYTE # 0.7 10^3/ul (0.3-0.9); MONOCYTES % 7.5 % (0.0-11.0); NEUTROPHILS % 64.3 % (39.0-77.0); PLATELET COUNT 213 10^3/UL (140-415); RED CELL DISTRIBUTION WIDTH 12.9 % (11.5-14.5); WHITE BLOOD COUNT 9.3 10^3/ul (4.8-10.8)
[2017-04-20 08:11] LABS: INR 0.9; PROTIME 12.1 Sec (12.2-14.2); PT RATIO 0.9
[2017-04-20 08:12] LABS: PARTIAL THROMBOPLASTIN TIME 28.7 Sec (25.0-35.0)
[2017-04-20] MEDS ORDERED: AMPICILLIN 1 GM/NS (PMX) 50 ML IV SCH (08:30)
[2017-04-20] MEDS: LACTATED RINGER'S 1,000 ML IV SCH ×4 (09:52→21:25)
[2017-04-20] MEDS ORDERED: CEFAZOLIN 2 GM/50 ML (PMX) 50 ML IVPB ONE ×2 (14:19→14:30)
[2017-04-20] MEDS ORDERED: FENTAnyl 50 MCG/ML VIAL ONE (14:48)
[2017-04-20] MEDS ORDERED: morphine SULFATE/PF (10 MG/10 ML) INJ ONE (14:48)
[2017-04-20] MEDS ORDERED: DEXAMETHASONE 4 MG/ML 1 ML INJ ONE (15:02)
[2017-04-20] MEDS ORDERED: ONDANSETRON 4 MG INJ ONE (15:02)
[2017-04-20] MEDS ORDERED: HYDROmorphONE 1 MG/ML SYG IV PRN (15:30)
[2017-04-20] MEDS ORDERED: NALOXONE (0.4 MG/ML) INJ IV PRN (15:30)
[2017-04-20] MEDS ORDERED: ONDANSETRON 4 MG INJ IV PRN (15:30)
[2017-04-20] MEDS ORDERED: ZOLPIDEM 5 MG TAB PO PRN (15:30)
[2017-04-20] MEDS ORDERED: DIPHENHYDRAMINE 50 MG INJ IV PRN (15:30)
[2017-04-20] MEDS ORDERED: NALBUPHINE HCL (10 MG/1 ML) INJ IV PRN (15:30)
[2017-04-20] MEDS ORDERED: MIDAZOLAM 1 MG/ML 2 ML INJ ONE (15:33)
[2017-04-20] MEDS ORDERED: PHENYLephrine (100 MCG/ML) 5ML SYG ONE (15:36)
--- NOTE | 2017-04-20 15:59 | OPR ---
Operative Report Planned Procedure Procedure date Apr 20, 2017 Procedure(s) Repeat Performed by yesika Mcgee Assisting provider: TAO DIANE Anesthesiologist: AP RINCON DO Pre-procedure diagnosis 38 weeks and 2 days gestation Previous 2 Labor pains Anesthesia Type: spinal Procedure Description Under satisfactory anaesthesia a Pfannenstiel incision was made two fingerbreadth above and parallel to the symphysis of pubis around the previous scar and previous scar was removed Incision was extended laterally to the border of the Recti muscles on either sides. Incision was carried down with sharp and blunt dissection until fascia was reached. Anterior Recti muscle fascia was incised in mid portion and incision extended laterally to the border of skin incision. Fascia was mobilized from muscle superiorly and Recti muscles were from midline using sharp and blunt dissection. Peritoneum was visualized; Avoiding bowel and bladder it was incised . Incision was extended superiorly and inferiorly. Bladder blade was placed. Posterior peritoneum covering the lower segment of the uterus and lower segment of the uterus were incised.Low transverse uterine incision was made on lower segment of the uterus. Incision extended laterally to the border of Round Lig. on either sides and baby was delivered from OT. position . Amniotic fluid appeared clear. Cord blood was obtained and cord had 3 vessels . Placenta was delivered spontaneously and appeared intact and complete. Intrauterine cavity was rubbed with a laparotomy sponge. Uterine incision was closed in 2 layers using running stitches of No1 Monocryl. Hemostasis appeared secure. Ovaries and Fallopian tubes were within normal limits. Announcing needle, lap sponge and instrument count to be correct abdomen was closed in layers as follows: Peritoneum and Recti muscles with running stitches of 20 Vicryl. Fascia with running stitch of No 1 PDS. Subcutaneous tissue with running stitches of 20 Chromic and skin was closed using deni. Patient tolerated the procedure well and was transferred to [facility] in good condition. Post-Procedure Post-procedure diagnosis That is post repeat delivery Findings: Live Baby [], Apgars [] and [], weight [], position [], [] presentation []cord. Estimated blood loss: other (500) Specimen(s): no Grafts/Implants: no Complication(s): no Pt Condition post procedure: stable Disposition: PACU Physician Certification I, the undersigned physician, hereby certify that I have discussed the procedure described in this consent form with this patient (or the patient's legal merchandising representative), including: * The risk and benefits of the procedure; * Any adverse reactions that may reasonably be expected to occur; * Any alternative efficacious methods of treatment which may be medically viable ; * The potential problems that may occur during recuperation; * Potential for blood transfusion and associated risks/benefits; and * Any research or economic interest I may have regarding this treatment. I further certify that the patient/legally responsible person was encouraged to ask question and that all questions were answered. TERRENCE STUART MD Apr 20, 2017 15:59
[2017-04-20] MEDS: KETOROLAC 30 MG INJ IV PRN (16:58)
[2017-04-20] MEDS: HYDROmorphONE 1 MG/ML SYG IV PRN ×2 (17:56→21:26)
[2017-04-20 18:30] VITALS: BP 137/89; PULSE 75; RESP 20
[2017-04-20] MEDS ORDERED: HYDROCODONE/APAP (5/325) TAB PO PRN (18:30)
[2017-04-20] MEDS ORDERED: NA PHOSPHATE/BIPHOS 133 ML ENEMA PR PRN (18:30)
[2017-04-20] MEDS ORDERED: LANOLIN 7 GM TUBE TOP PRN (18:30)
[2017-04-20 19:45] VITALS: BP 135/85; PULSE 66; RESP 18
[2017-04-20] MEDS: SENNA/DOCUSATE NA (8.6MG/50MG) TAB PO SCH (21:25)
[2017-04-20] MEDS: IBUPROFEN 800 MG TAB PO SCH (22:00)
[2017-04-20 23:30] VITALS: BP 119/72; PULSE 74; RESP 18
[2017-04-20] MEDS: CLINDAMYCIN 300 MG CAP PO SCH (23:32)
[2017-04-20] MEDS: CEFAZOLIN 2 GM/50 ML (PMX) 50 ML IV SCH (23:33)
[2017-04-21 04:30] VITALS: BP 116/78; PULSE 81; RESP 18
[2017-04-21] MEDS: IBUPROFEN 800 MG TAB PO SCH ×3 (05:20→21:26)
[2017-04-21] MEDS: CLINDAMYCIN 300 MG CAP PO SCH ×3 (06:32→17:28)
[2017-04-21 07:39] LABS: BASOPHILS % 0.2 % (0.0-2.0); EOSINOPHILS % 0.2 % (0.0-7.0); HEMATOCRIT 25.9 % (37.0-47.0); HEMOGLOBIN 8.6 g/dl (12.0-16.0); LYMPHOCYTES # 2.1 10^3/ul (0.8-2.9); LYMPHOCYTES % 16.3 % (15.0-51.0); MEAN CORPUSCULAR HEMOGLOBIN 29.3 pg (29.0-33.0); MEAN CORPUSCULAR HGB CONC 33.2 g/dl (32.0-37.0); MEAN CORPUSCULAR VOLUME 88.1 fl (82.0-101.0); MEAN PLATELET VOLUME 11.1 fl (7.4-10.4); MONOCYTE # 1.1 10^3/ul (0.3-0.9); MONOCYTES % 8.8 % (0.0-11.0); PLATELET COUNT 196 10^3/UL (140-415); RED BLOOD COUNT 2.94 10^6/ul (4.20-5.40); RED CELL DISTRIBUTION WIDTH 12.5 % (11.5-14.5)
[2017-04-21] MEDS: SENNA/DOCUSATE NA (8.6MG/50MG) TAB PO SCH ×2 (08:37→21:25)
[2017-04-21] MEDS: KETOROLAC 30 MG INJ IV PRN ×2 (08:38→14:39)
[2017-04-21] MEDS: CEFAZOLIN 2 GM/50 ML (PMX) 50 ML IV SCH ×2 (08:43→16:03)
[2017-04-21 08:45] VITALS: BP 116/76; PULSE 81; RESP 18
[2017-04-21] MEDS: LACTATED RINGER'S 1,000 ML IV SCH ×2 (08:45→10:17)
[2017-04-21] MEDS ORDERED: BISACODYL 10 MG SUPP PR ONE (10:00)
[2017-04-21] MEDS: OXYCODONE/ACETAMINOPHEN (5/325) TAB PO PRN (16:07)
[2017-04-21 16:45] VITALS: BP 109/71; PULSE 81; RESP 18
--- NOTE | 2017-04-21 18:25 | PN ---
Date/Time of Note Date/Time of Note DATE: 04/21/17 TIME: 18:23 Assessment/Plan VTE Prophylaxis VTE Prophylaxis Intervention: ambulation Lines/Catheters IV Catheter Type (from Nrsg): Peripheral IV Assessment/Plan Assessment/Plan Postop day 1 Status post We will advance diet, ambulate, monitor vital signs Repeat CBC next day Subjective 24 Hr Interval Summary Passing flatus No bowel movement Constitutional: BM, ambulates, flatus, improved, no complaints, urine output Pain Control: well controlled Exam/Review of Systems Vital Signs Vitals Vital Signs Date Time Temp Pulse Resp B/P Pulse Ox O2 Delivery O2 Flow Rate FiO2 04/21/17 16:45 98.1 81 18 109/71 Room Air 04/21/17 04:24 97 21 Intake and Output 04/20/17 04/20/17 04/21/17 15:00 23:00 07:00 Intake Total 1650 ml 250 ml Output Total 400 ml 1100 ml 1000 ml Balance 1250 ml -850 ml -1000 ml Exam Free Text/Dictation Abdomen is soft bowel sounds present and abdomen is nontender Incision is covered Constitutional: alert, oriented, well developed Psych: nl mood/affect, no complaints Head: atraumatic, normocephalic Eyes: EOMI, nl conjunctiva, nl lids, nl sclera ENMT: mucosa pink and moist, nl external ears & nose, nl lips & teeth, nl nasal mucosa & septum Neck: non-tender, supple Respiratory: clear to auscultation, normal air movement Cardiovascular: nl pulses, regular rate and rhythm Gastrointestinal: nl liver, spleen, non-tender, soft Drains None Musculoskeletal: nl extremities to inspection, nl gait and stance Extremities: normal pulses Neurological: CYLINDER BLOCK HOLE RELINER II-XII intact, nl mental status, nl speech, nl strength Skin: nl turgor, rash or lesions Lymph: nl lymph nodes Results Result Diagram: 04/21/17 0717 TERRENCE STUART MD Apr 21, 2017 18:25
[2017-04-21 20:00] VITALS: BP 118/73; PULSE 67; RESP 16
[2017-04-22] MEDS: CLINDAMYCIN 300 MG CAP PO SCH ×4 (00:38→17:23)
[2017-04-22] MEDS: OXYCODONE/ACETAMINOPHEN (5/325) TAB PO PRN ×3 (01:57→19:51)
[2017-04-22 04:00] VITALS: BP 117/68; PULSE 80; RESP 20
[2017-04-22] MEDS ORDERED: BISACODYL 10 MG SUPP PR SCH (04:23)
[2017-04-22] MEDS: IBUPROFEN 800 MG TAB PO SCH ×3 (05:19→22:28)
[2017-04-22 07:00] LABS: BASOPHILS % 0.2 % (0.0-2.0); EOSINOPHILS # 0.1 10^3/ul (0.0-0.5); EOSINOPHILS % 0.8 % (0.0-7.0); HEMOGLOBIN 9.8 g/dl (12.0-16.0); LYMPHOCYTES # 1.5 10^3/ul (0.8-2.9); LYMPHOCYTES % 11.3 % (15.0-51.0); MEAN CORPUSCULAR HEMOGLOBIN 28.4 pg (29.0-33.0); MEAN CORPUSCULAR HGB CONC 31.6 g/dl (32.0-37.0); MEAN CORPUSCULAR VOLUME 89.9 fl (82.0-101.0); MEAN PLATELET VOLUME 10.8 fl (7.4-10.4); MONOCYTE # 0.9 10^3/ul (0.3-0.9); MONOCYTES % 7.1 % (0.0-11.0); NEUTROPHILS % 80.2 % (39.0-77.0); PLATELET COUNT 243 10^3/UL (140-415); RED BLOOD COUNT 3.45 10^6/ul (4.20-5.40); WHITE BLOOD COUNT 13.2 10^3/ul (4.8-10.8)
[2017-04-22 07:25] VITALS: BP 112/69; PULSE 57; RESP 19
[2017-04-22] MEDS: SENNA/DOCUSATE NA (8.6MG/50MG) TAB PO SCH ×2 (08:04→21:24)
--- NOTE | 2017-04-22 12:14 | DS ---
Date/Time of Note Date/Time of Note If stable will DC home next day DATE: 04/22/17 TIME: 12:13 Obstetrical Discharge Record Final Diagnosis Final Diagnosis: Term delivered Other Final Diagnosis Status post Section Section: Repeat Condition on Discharge Physical Assessment Last Vitals: See nurse's notes Voiding: Yes Bowel Movement: Yes Breast: Soft, non-tender, Filling Fundus: Firm Abdomen and Incision: Abdomen is soft bowel sounds present Incision without induration or erythema and healing well Calf Tenderness: No Patient Condition: Good TERRENCE STUART MD Apr 22, 2017 12:14
--- NOTE | 2017-04-22 12:15 | DS ---
Date/Time of Note Date/Time of Note DATE: 04/22/17 TIME: 12:14 Discharge Summary Admission/Discharge Info Admit Date/Time Apr 20, 2017 at 04:20 Discharge Date/Time April 23, 2017 Discharge Diagnosis Status post Patient Condition: Good Procedures Repeat section Hx of Present Illness 31-year-old female underwent repeat section in labor at term Hospital Course Uncomplicated Home Meds Reported Medications Multivit/Min/Fol Ac/Iron/Pren* ( S*) 1 Tab Tab, 1 TAB PO DAILY, TAB 01/25/17 Follow-up Plan 2 3 days in clinic for staple removal Primary Care Provider Not On Staff Doctor Time spent on discharge: > 30 minutes Pending Labs Laboratory Tests Test 04/22/17 06:43 White Blood Count 13.210^3/ul (4.8-10.8) Red Blood Count 3.4510^6/ul (4.20-5.40) Hemoglobin 9.8g/dl (12.0-16.0) Hematocrit 31.0% (37.0-47.0) Mean Corpuscular Volume 89.9fl (82.0-101.0) Mean Corpuscular Hemoglobin 28.4pg (29.0-33.0) Mean Corpuscular Hemoglobin Concent 31.6g/dl (32.0-37.0) Red Cell Distribution Width 13.0% (11.5-14.5) Platelet Count 28701^3/UL (140-415) Mean Platelet Volume 10.8fl (7.4-10.4) Neutrophils % 80.2% (39.0-77.0) Lymphocytes % 11.3% (15.0-51.0) Monocytes % 7.1% (0.0-11.0) Eosinophils % 0.8% (0.0-7.0) Basophils % 0.2% (0.0-2.0) Nucleated Red Blood Cells % 0.0/100WBC (0.0-0.0) Neutrophils # (Manual) 10.610^3/ul (1.7-7.5) Lymphocytes # 1.510^3/ul (0.8-2.9) Monocytes # 0.910^3/ul (0.3-0.9) Eosinophils # 0.110^3/ul (0.0-0.5) Basophils # 0.010^3/ul (0.0-0.1) Nucleated Red Blood Cells # 0.010^3/ul (0.0-0.0) TERRENCE STUART MD Apr 22, 2017 12:15
--- NOTE | 2017-04-22 12:16 | PD.PPDC ---
SENIOR QUALITY ANALYST Discharge Instruction Provider Information Physician Information 31-year-old female had repeat in labor at term Diagnosis Final Diagnosis: Status post delivery Condition Patient Condition: Good Diet Diet: Resume Regular Diet Activity/Restrictions Activity: December Shower Restrictions: No Exercising No Lifting Nothing in the Vagina Return to Work or School: Jun 25, 2017 Wound/Drain Care Instructions Wound/Drain Care Instructions: Keep clean and dry Follow-up Follow-up with Physician: 2, 3, Day/Days (In clinic for staple removal) Return to clinic for BALER OPERATOR Instructions: Fever greater than 101 Chills OB Instructions: Breast Tenderness Depression Comment: Pelvic rest and no heart activity for 2 months Surgical Instructions: Incisional Drainage Incisional Redness TERRENCE STUART MD Apr 22, 2017 12:16
[2017-04-22] MEDS ORDERED: IBUP800T25 PO (12:17)
[2017-04-22 15:52] VITALS: BP 101/69; PULSE 70; RESP 18
[2017-04-22 20:00] VITALS: BP 123/76; PULSE 70; RESP 19
[2017-04-23] MEDS: CLINDAMYCIN 300 MG CAP PO SCH ×3 (00:37→11:37)
[2017-04-23 04:00] VITALS: BP 108/70; PULSE 62; RESP 18
[2017-04-23] MEDS: IBUPROFEN 800 MG TAB PO SCH (06:36)
[2017-04-23 07:30] VITALS: BP 126/65; PULSE 75; RESP 18
[2017-04-23] MEDS: SENNA/DOCUSATE NA (8.6MG/50MG) TAB PO SCH (08:34)
[2017-04-23] MEDS: OXYCODONE/ACETAMINOPHEN (5/325) TAB PO PRN (08:35)
[2017-04-23 08:41] LABS: BASOPHILS % 0.4 % (0.0-2.0); EOSINOPHILS # 0.2 10^3/ul (0.0-0.5); EOSINOPHILS % 2.5 % (0.0-7.0); HEMATOCRIT 28.8 % (37.0-47.0); HEMOGLOBIN 9.1 g/dl (12.0-16.0); LYMPHOCYTES % 20.9 % (15.0-51.0); MEAN CORPUSCULAR HEMOGLOBIN 28.4 pg (29.0-33.0); MEAN CORPUSCULAR HGB CONC 31.6 g/dl (32.0-37.0); MEAN PLATELET VOLUME 10.9 fl (7.4-10.4); MONOCYTE # 0.7 10^3/ul (0.3-0.9); MONOCYTES % 7.3 % (0.0-11.0); NEUTROPHILS % 68.5 % (39.0-77.0); PLATELET COUNT 219 10^3/UL (140-415); RED CELL DISTRIBUTION WIDTH 13.2 % (11.5-14.5); WHITE BLOOD COUNT 9.6 10^3/ul (4.8-10.8)
[2017-04-23] MEDS ORDERED: MEASLES,MUMPS,RUBELLA VACCINE INJ SC* ONE (09:00)
[2017-04-23] MEDS ORDERED: DIPHTH/TET/ACEL PERTUSS (ADULT) 0.5 ML VIAL IM* ONE (09:00)
== END 2017-04-23 14:14 | disposition home or self-care (01) | DRG 766 ==
LOC: OBT 00:10 → L-D 00:10 → OBT 04:20 → L-D 04:20 → PP1 18:25
PROVIDERS: ADMIT Obstetrics & Gynecology; ATTEND Obstetrics & Gynecology
PROC: 3E033VJ Introduction of Other Hormone into Peripheral Vein, Percutaneous Approach (ICD-10-PCS; 2017-04-20)
PROC: 10D00Z1 Extraction of Products of Conception, Low, Open Approach (ICD-10-PCS; principal; 2017-04-20 08:30)
DX: O34.211 Maternal care for low transverse scar from previous cesarean delivery (principal); Z37.0 Single live birth; Z3A.38 38 weeks gestation of pregnancy
CPT/HCPCS: 76818; 80307; 81003; 84112; 85025; 85610; 85730; 86592; 86850; 86900; 86901; 87340; 90715; 94760; 99464; G0463; J0290; J0690; J1100; J1170; J1885; J2250; J2274; J2370; J2405; J2590; J3010; J7120

== ENCOUNTER 2018-04-01 11:30 | Emergency (ER) | END 2018-04-01 15:45 | disposition home or self-care (01) ==

== ENCOUNTER 2018-04-05 15:17 | Emergency (ER) | END 2018-04-05 20:09 | disposition home or self-care (01) ==